=== PATIENT | female | born 1990 | race Native Hawaiian/Other Pacific Islander ===

== ENCOUNTER 2020-12-12 13:54 | Emergency (ER) | payer OTHER ==
[~2020-12-12] VITALS: Ht 152.4 cm; Wt 147.9 kg
[2020-12-12 13:54] VITALS: TEMP 98.2
[2020-12-12 15:15] VITALS: BP 147/78
== END 2020-12-12 15:15 | disposition home or self-care (01) ==
LOC: ED 13:54
DX: S02.2XXA Fracture of nasal bones, initial encounter for closed fracture (principal); R04.0 Epistaxis; Y04.2XXA Assault by strike against or bumped into by another person, initial encounter; Y92.238 Other place in hospital as the place of occurrence of the external cause
CPT/HCPCS: 96372; 99283; J1170; J2405

== ENCOUNTER 2020-12-22 09:56 | Outpatient (CLI) | payer OTHER | END 2020-12-22 18:59 | disposition home or self-care (01) | LOC: CT 09:56 | PROVIDERS: ATTEND Internal Medicine | DX: S09.93XD Unspecified injury of face, subsequent encounter (principal); Y92.9 Unspecified place or not applicable | CPT/HCPCS: Q9963 ==